=== PATIENT | female | born 1945 | race Caucasian/White ===

== ENCOUNTER 2018-09-07 12:31 | Emergency (ER) | payer MEDICARE ==
[2018-09-07 12:41] VITALS: BP 127/71; PULSE 91; RESP 16; TEMP 99.3; O2SAT 97
[2018-09-07 13:42] LABS: INR 1.1; PROTHROMBIN TIME 12.2 Seconds (9.8-13.1)
[2018-09-07 13:43] LABS: BASO % 0.5 % (0.0-2.0); EOS # 0.1 K/uL (0.0-0.7); EOS % 0.8 % (0.0-4.0); HEMOGLOBIN 12.4 g/dL (12.0-16.0); LYMPH # 1.9 K/uL (1.0-4.3); LYMPH % 21.6 % (20.0-40.0); MEAN CORPUSCULAR HEMOGLOBIN 27.8 pg (27.0-31.0); MEAN CORPUSCULAR HGB CONC 32.7 g/dL (33.0-37.0); MEAN PLATELET VOLUME 7.8 fl (7.2-11.7); MONO # 0.9 K/uL (0.0-0.8); MONO % 9.7 % (0.0-10.0); NEUT # 5.9 K/uL (1.8-7.0); NEUT % 67.4 % (50.0-75.0); NRBC % 0.1 % (0.0-0.0); RBC 4.46 Mil/uL (3.80-5.20); WHITE BLOOD COUNT 8.8 K/uL (4.8-10.8)
[2018-09-07 13:44] LABS: ALB/GLOB RATIO 1.3 (1.0-2.1); ALBUMIN 4.1 g/dL (3.5-5.0); ALT/SGPT 22 U/L (9-52); AST/SGOT 32 U/L (14-36); BLOOD UREA NITROGEN 14 mg/dl (7-17); CALCIUM 9.2 mg/dL (8.4-10.2); GFR NON-AFRICAN AMERICAN > 60; PARTIAL THROMBOPLASTIN TIME 33.4 Seconds (25.6-37.1)
--- NOTE | 2018-09-07 14:19 | ED PDOC ---
HPI: Headache Time Seen by Provider: 09/07/18 12:50 Chief Complaint (Nursing): Headache Chief Complaint (Provider): Headache History Per: Patient History/Exam Limitations: no limitations Onset/Duration Of Symptoms: Days (x3), Worse Since (this morning) Current Symptoms Are (Timing): Still Present Additional Complaint(s): 73 year old female with pmHx of hypothyroidism, arrives to ED for an evaluation of body shakes for 2 seconds when she woke up this morning. Patient states she experienced nose pain and abdominal pain for 3 days but symptoms became exacerbated with shaking. She denies fever, chills, chest pain, shortness of breath, weakness, or numbness. PCP: Dr. Parul Mills Past Medical History Reviewed: Historical Data, Nursing Documentation, Vital Signs Vital Signs: Last Vital Signs Temp 99.3 F 09/07/18 12:37 Pulse 91 H 09/07/18 12:37 Resp 16 09/07/18 12:37 BP 127/71 09/07/18 12:37 Pulse Ox 97 09/07/18 12:37 - Medical History PMH: Hyperlipidemia, Hypothyroidism (takes levothyroxine) - Surgical History Surgical History: Endoscopy - Family History Family History: States: Unknown Family Hx - Home Medications Home Medications: Ambulatory Orders Medication Instructions Recorded Doxycycline Hyclate [Doryx] 100 mg PO BID 7 Days #13 cap 09/07/18 - Allergies Allergies/Adverse Reactions: Allergies Allergy/AdvReac Type Severity Reaction Status Date / Time Penicillins Allergy RASH Verified 09/07/18 12:37 Review of Systems ROS Statement: Except As Marked, All Systems Reviewed And Found Negative Constitutional: Negative for: Fever, Chills ENT: Positive for: Nose Pain Cardiovascular: Negative for: Chest Pain Respiratory: Negative for: Shortness of Breath Gastrointestinal: Positive for: Abdominal Pain Neurological: Positive for: Other (body shakes for < 2 seconds). Negative for: Weakness, Numbness Physical Exam - Reviewed Nursing Documentation Reviewed: Yes Vital Signs Reviewed: Yes - Physical Exam Appears: Positive for: No Acute Distress Head Exam: Positive for: ATRAUMATIC, NORMAL INSPECTION, NORMOCEPHALIC Skin: Positive for: Normal Color Eye Exam: Positive for: Normal appearance ENT: Positive for: TM Is/Are (clear bilaterally), Other (left facial tenderness on palpitation). Negative for: Nasal Congestion, Pharyngeal Erythema, Tonsillar Swelling Neck: Positive for: Normal, Supple Cardiovascular/Chest: Positive for: Regular Rate, Rhythm, Chest Non Tender Respiratory: Positive for: Normal Breath Sounds. Negative for: Respiratory Distress Pulses-Radial (L): 2+ Pulses-Radial (R): 2+ Gastrointestinal/Abdominal: Positive for: Soft, Tenderness (mild RUQ). Negative for: Guarding, Rebound Back: Positive for: Normal Inspection. Negative for: L CVA Tenderness, R CVA Tenderness Extremity: Positive for: Normal ROM (upper/lower) Neurologic/Psych: Positive for: Alert, Oriented. Negative for: Motor/Sensory Deficits - Laboratory Results Result Diagrams: 09/07/18 13:26 09/07/18 13:26 Lab Results: PT 12.2 Seconds (9.8-13.1) 09/07/18 13:26 INR 1.1 09/07/18 13:26 APTT 33.4 Seconds (25.6-37.1) 09/07/18 13:26 Total Bilirubin 0.6 mg/dl (0.2-1.3) 09/07/18 13:26 AST 32 U/L (14-36) 09/07/18 13:26 ALT 22 U/L (9-52) 09/07/18 13:26 Alkaline Phosphatase 87 U/L (38-126) 09/07/18 13:26 Total Protein 7.3 G/DL (6.3-8.2) 09/07/18 13:26 Albumin 4.1 g/dL (3.5-5.0) 09/07/18 13:26 Globulin 3.2 gm/dL (2.2-3.9) 09/07/18 13:26 Albumin/Globulin Ratio 1.3 (1.0-2.1) 09/07/18 13:26 - ECG O2 Sat by Pulse Oximetry: 97 (RA) Pulse Ox Interpretation: Normal Medical Decision Making Medical Decision Making: Time: 1317 Initial Plan: * CT head * CT sinuses * EKG * Labs * US ABD Time: 1420 -CT head FINDINGS: HEMORRHAGE: No intracranial hemorrhage. BRAIN: There is mild chronic periventricular white matter ischemic changes. No evidence of large acute infarct. Additionally, there also appears to be minor chronic anterior basal ganglia ischemic changes as well. Mild generalized volume loss. Mild vascular calcifications both carotid siphons. VENTRICLES: No obstructive hydrocephalus. CALVARIUM: There are no acute calvarial fractures. PARANASAL SINUSES: Opacification superior aspect left maxillary sinus. Mild to moderate mucosal thickening within the ethmoid air complex extending superiorly into the frontal sinus. Minimal mucosal thickening also noted in the sphenoid sinus. MASTOID AIR CELLS: Unremarkable as visualized. No inflammatory changes. OTHER FINDINGS: None. IMPRESSION: No acute intracranial hemorrhage. Mild chronic white matter and basal nuclei ischemic changes. Mild generalized volume loss. Time: 1427 --CT sinus FINDINGS: FRONTAL SINUSES: Frontal sinus minor mucosal thickening seen inferior aspect left frontal sinus ETHMOID SINUSES: Mild to moderate mucosal thickening within the ethmoid air complex extending superiorly into the inferior aspect of the left SPHENOID SINUSES: clear. MAXILLARY SINUSES: The subtotal opacification left maxillary antrum.. There is mild to moderate mucosal thickening within the ethmoid air complex extending superiorly into the inferior aspect of the frontal sinus. Minimal mucosal thickening seen left asp ect of the sphenoid sinus. SINUS DRAINAGE: Occlusion left ostiomeatal complex and left frontal recess. The right ostiomeatal complex, right frontal recess and both sphenoid ethmoidal recess is clear. NASAL SEPTUM: No significant deviation. No destructive lesion. MASS: None. SKULL BASE: Unremarkable. TEMPORAL BONES: Middle ears and mastoid grossly unremarkable. OTHER FINDINGS: None. IMPRESSION: Subtotal opacification left maxillary sinus. Mild to moderate mucosal thickening ethmoid air complex extending superiorly into the inferior margin of the frontal sinus. Occlusion left ostiomeatal complex and left frontal recess. The right ostiomeatal complex, right frontal recess and both sphenoid ethmoidal recess is clear. Time: 1443 --US ABD FINDINGS: LIVER: Measures 14.1 cm in length. Diffusely increased echogenicity of the liver parenchyma. Consistent with fatty infiltration. No mass. Smooth contour. No biliary dilatation. GALLBLADDER: Unremarkable. No gallstones. COMMON BILE DUCT: Measures 6 mm. No stones. No dilatation. PANCREAS: Unremarkable. No mass or ductal dilatation RIGHT KIDNEY: Measures 9.5 cm in length. Normal echogenicity. No calculus, mass, or hydronephrosis. AORTA: No aneurysmal dilatation. IVC: Unremarkable. OTHER FINDINGS: None . IMPRESSION: Fatty infiltration of the liver. Otherwise unremarkable examination. Time: 1445 --Labs reviewed: (-) significant clinical abnormality. --EKG: NSR at [address] changes. Time: 1500 Dr. Gene meyer. Time: 1605 --Case discussed with Dr. Mills who is agreeable with discharge plan. Upon provider reevaluation, patient is medically stable and requires no further treatment in the ED at this time. Patient will be discharged home with Rx for Doryx 100mg then recommended to follow up with PCP. Counseling was provided and all questions were answered regarding diagnosis. There is agreement to discharge plan. Return if symptoms persist or worsen. Clinical Impression: sinusitis, acute maxillary; abdominal pain Scribe Attestation: Documented by Augusta Padilla, acting as a scribe for Daja Matias MD. Provider Scribe Attestation: All medical record entries made by the Scribe were at my direction and personally dictated by me. I have reviewed the chart and agree that the record accurately reflects my personal performance of the history, physical exam, medical decision making, and the department course for this patient. I have also personally directed, reviewed, and agree with the discharge instructions and disposition. Disposition - Clinical Impression Clinical Impression: Sinusitis, acute maxillary, Abdominal pain - Patient ED Disposition Is Patient to be Admitted: No Counseled Patient/Family Regarding: Studies Performed, Diagnosis, Need For Followup, Rx Given - Disposition Referrals: Parul Mills MD [Medical Doctor] - Disposition: Routine/Home Disposition Time: 16:05 Condition: STABLE Prescriptions: Doxycycline Hyclate [Doryx] 100 mg PO BID 7 Days #13 cap Instructions: Sinusitis in Adults, Acute Abdomen (Belly Pain) Forms: DZZOM (Kyrgyz) Print Language: RWANDAN
--- NOTE | 2018-09-07 14:23 | CT ---
Date of service: 09/07/2018 PROCEDURE: CT HEAD WITHOUT CONTRAST. HISTORY: [place] COMPARISON: Comparison made with concurrent CT scan of the paranasal sinuses TECHNIQUE: Axial computed tomography images were obtained through the head/brain without intravenous contrast. Radiation dose: Total exam DLP = 702.51 mGy-cm. This CT exam was performed using one or more of the following dose reduction techniques: Automated exposure control, adjustment of the mA and/or kV according to patient size, and/or use of iterative reconstruction technique. FINDINGS: HEMORRHAGE: No intracranial hemorrhage. BRAIN: There is mild chronic periventricular white matter ischemic changes. No evidence of large acute infarct. Additionally, there also appears to be minor chronic anterior basal ganglia ischemic changes as well. Mild generalized volume loss. Mild vascular calcifications both carotid siphons. VENTRICLES: No obstructive hydrocephalus. CALVARIUM: There are no acute calvarial fractures. PARANASAL SINUSES: Opacification superior aspect left maxillary sinus. Mild to moderate mucosal thickening within the ethmoid air complex extending superiorly into the frontal sinus. Minimal mucosal thickening also noted in the sphenoid sinus. MASTOID AIR CELLS: Unremarkable as visualized. No inflammatory changes. OTHER FINDINGS: None. IMPRESSION: No acute intracranial hemorrhage. Mild chronic white matter and basal nuclei ischemic changes. Mild generalized volume loss.
--- NOTE | 2018-09-07 14:31 | CT ---
Date of service: 09/07/2018 PROCEDURE: CT SINUSES WITHOUT CONTRAST HISTORY: L facial pain COMPARISON: None available. TECHNIQUE: Contiguous axial CT images of the paranasal sinuses were obtained. Coronal and sagittal reformats were generated. Radiation dose: Total exam DLP = 1183.06 mGy-cm. This CT exam was performed using one or more of the following dose reduction techniques: Automated exposure control, adjustment of the mA and/or kV according to patient size, and/or use of iterative reconstruction technique. FINDINGS: FRONTAL SINUSES: Frontal sinus minor mucosal thickening seen inferior aspect left frontal sinus ETHMOID SINUSES: Mild to moderate mucosal thickening within the ethmoid air complex extending superiorly into the inferior aspect of the left SPHENOID SINUSES: clear. MAXILLARY SINUSES: The subtotal opacification left maxillary antrum.. There is mild to moderate mucosal thickening within the ethmoid air complex extending superiorly into the inferior aspect of the frontal sinus. Minimal mucosal thickening seen left aspect of the sphenoid sinus. SINUS DRAINAGE: Occlusion left ostiomeatal complex and left frontal recess. The right ostiomeatal complex, right frontal recess and both sphenoid ethmoidal recess is clear. NASAL SEPTUM: No significant deviation. No destructive lesion. MASS: None. SKULL BASE: Unremarkable. TEMPORAL BONES: Middle ears and mastoid grossly unremarkable. OTHER FINDINGS: None. IMPRESSION: Subtotal opacification left maxillary sinus. Mild to moderate mucosal thickening ethmoid air complex extending superiorly into the inferior margin of the frontal sinus. Occlusion left ostiomeatal complex and left frontal recess. The right ostiomeatal complex, right frontal recess and both sphenoid ethmoidal recess is clear.
--- NOTE | 2018-09-07 14:47 | US ---
Date of service: 09/07/2018 HISTORY: RUQ pain COMPARISON: None. TECHNIQUE: Sonographic evaluation of the right upper quadrant of the abdomen. FINDINGS: LIVER: Measures 14.1 cm in length. Diffusely increased echogenicity of the liver parenchyma. Consistent with fatty infiltration. No mass. Smooth contour. No biliary dilatation. GALLBLADDER: Unremarkable. No gallstones. COMMON BILE DUCT: Measures 6 mm. No stones. No dilatation. PANCREAS: Unremarkable. No mass or ductal dilatation RIGHT KIDNEY: Measures 9.5 cm in length. Normal echogenicity. No calculus, mass, or hydronephrosis. AORTA: No aneurysmal dilatation. IVC: Unremarkable. OTHER FINDINGS: None . IMPRESSION: Fatty infiltration of the liver. Otherwise unremarkable examination.
--- NOTE | 2018-09-07 18:55 | CARD ---
APPROVED REPORT Date of service: 09/07/2018 EKG Measurement Heart [id number] <Conclusion> Normal sinus rhythm Normal ECG
== END 2018-09-07 16:23 | disposition home or self-care (01) ==
LOC: H.ER 12:31
DX: J01.90 Acute sinusitis, unspecified (principal); R10.9 Unspecified abdominal pain; E03.9 Hypothyroidism, unspecified; E78.5 Hyperlipidemia, unspecified; Z88.0 Allergy status to penicillin; K76.0 Fatty (change of) liver, not elsewhere classified